=== PATIENT | female | born 1960 | race Caucasian/White ===

== ENCOUNTER 2023-09-03 17:24 | Inpatient (IN) | payer OTHER, MEDICAID ==
[2023-09-03] MEDS ORDERED: Albuterol/Ipratropium 3.0-0.5 MG/3 ML Neb Soln NEB ONE ×2 (17:41→19:45)
[2023-09-03] MEDS ORDERED: methylPREDNISolone Sodium Succinate 125 MG/2 ML SDV IVPUSH ONE (17:41)
[2023-09-03 18:01] LABS: BASOPHILS PERCENT AUTO 0.2 % (0.0-1.0); EOSINOPHILS PERCENT AUTO 3.5 % (1.0-3.0); HEMATOCRIT 39.3 % (37.0-47.0); HEMOGLOBIN 12.8 g/dL (12.0-16.0); LYMPHOCYTES PERCENT AUTO 22.2 % (20.5-50.1); MEAN CORPUSCULAR HEMOGLOBIN 30.5 pg (27.0-34.0); MEAN CORPUSCULAR HGB CONC 32.6 g/dL (33.0-35.0); MEAN CORPUSCULAR VOLUME 93.6 fL (80-100); MONOCYTES PERCENT AUTO 8.1 % (2-8); PLATELET COUNT,PLT 120 10^3/uL (150-450); WHITE BLOOD CELL COUNT,WBC 8.8 10^3/uL (5.0-10.0)
[2023-09-03] MEDS: Sodium Chloride 0.9% 10 ML Syringe FLUSH PRN (18:04)
[2023-09-03 18:09] LABS: ANION GAP 14.3 mEq/L (7-13); CALCIUM 9.3 mg/dL (8.5-10.1); CREATININE 0.84 mg/dL (0.55-1.02); EST CRCL DRUG DOSING (CG) 58.43 mL/min; POTASSIUM,K 4.3 mmol/L (3.5-5.1)
[2023-09-03 20:12] LABS: CORONAVIRUS COVID-19 NAA NEGATIVE (NEGATIVE); INFLUENZA A NAA NEGATIVE (NEGATIVE); INFLUENZA B NAA NEGATIVE (NEGATIVE)
[2023-09-03] MEDS ORDERED: Gabapentin 300 MG Cap PO ONE (22:02)
[2023-09-03] MEDS ORDERED: Acetaminophen 325 MG Tab PO PRN (22:03)
[2023-09-03] MEDS ORDERED: Naloxone 2 MG/2 ML Syringe IVPUSH PRN (22:03)
[2023-09-03] MEDS ORDERED: Ondansetron 4 MG/2 ML SDV IVPUSH PRN (22:03)
[2023-09-03] MEDS ORDERED: Sennosides/Docusate Sodium 50-8.6 MG Tab PO PRN (22:03)
[2023-09-03] MEDS ORDERED: Bisacodyl 5 MG Tab PO PRN (22:03)
[2023-09-03] MEDS ORDERED: HYDROmorphone 0.5 MG/0.5 ML Syringe IVPUSH PRN (22:03)
[2023-09-03] MEDS ORDERED: Acetaminophen/oxyCODONE 325-5 MG Tab PO PRN (22:03)
[2023-09-03] MEDS ORDERED: Magnesium Hydroxide 400 MG/5 ML Susp 30 ML Cup PO PRN (22:03)
[2023-09-03] MEDS ORDERED: Polyethylene Glycol 3350 Powder 17 GM Packet PO PRN (22:03)
[2023-09-03] MEDS ORDERED: LORazepam 2 MG/ML SDV IVPUSH ONE (22:09)
[2023-09-03] MEDS ORDERED: Flumazenil 0.1 MG/ML 5 ML MDV IVPUSH PRN (22:09)
[2023-09-03] MEDS ORDERED: 50% Dextrose in Water 50 ML Syringe IVPUSH PRN (22:12)
[2023-09-03] MEDS ORDERED: Glucagon,Human Recombinant 1 MG Vial IM PRN (22:12)
[2023-09-03] MEDS ORDERED: Albuterol/Ipratropium 3.0-0.5 MG/3 ML Neb Soln NEB PRN (23:00)
[2023-09-04 00:24] LABS: T4 FREE 1.01 ng/dL (0.76-1.46); TSH ULTRASENSITIVE 0.6 uIU/mL (0.36-3.74)
[2023-09-04] MEDS: methylPREDNISolone Sodium Succinate 40 MG/1 ML SDV IVPUSH SCH ×3 (02:00→17:14)
[2023-09-04] MEDS: Pantoprazole 40 MG Tab.CR PO SCH ×2 (06:05→21:15)
[2023-09-04 06:34] LABS: HEMOGLOBIN 12.5 g/dL (12.0-16.0); LYMPHOCYTES PERCENT AUTO 11.3 % (20.5-50.1); MEAN CORPUSCULAR HEMOGLOBIN 30.3 pg (27.0-34.0); MEAN CORPUSCULAR HGB CONC 32.1 g/dL (33.0-35.0); MEAN CORPUSCULAR VOLUME 94.7 fL (80-100); MONOCYTES PERCENT AUTO 0.9 % (2-8); NEUTROPHILS PERCENT AUTO 87.8 % (42.2-75.2); PLATELET COUNT,PLT 278 10^3/uL (150-450); RED BLOOD CELL COUNT 4.12 10^6/uL (4.2-5.4); WHITE BLOOD CELL COUNT,WBC 9.4 10^3/uL (5.0-10.0)
[2023-09-04 07:10] LABS: ALBUMIN 3.1 g/dL (3.4-5.0); BILIRUBIN TOTAL 0.3 mg/dL (0.2-1.0); BUN/CREATININE RATIO 11.3 (No establ ref range); CALCIUM 9.5 mg/dL (8.5-10.1); CREATININE 1.06 mg/dL (0.55-1.02); EST CRCL DRUG DOSING (CG) 50.19 mL/min; MAGNESIUM 1.4 mg/dL (1.8-2.4); PROTEIN TOTAL,TP 7.7 g/dL (6.4-8.2)
[2023-09-04 07:16] LABS: A/G RATIO 0.67
[2023-09-04] MEDS ORDERED: Magnesium Sulfate/Water 2 GM in Premix Bag 1 BAG IV ONE ×3 (07:48→13:45)
[2023-09-04] MEDS ORDERED: Sodium Chloride 0.9% 1,000 ML IV SCH (08:00)
[2023-09-04] MEDS ORDERED: Bumetanide 1 MG Tab PO SCH (09:00)
[2023-09-04] MEDS ORDERED: Lisinopril 10 MG Tab PO SCH (09:00)
[2023-09-04] MEDS ORDERED: Spironolactone 25 MG Tab PO SCH (09:00)
[2023-09-04] MEDS ORDERED: buPROPion 150 MG Tab.ER PO SCH (09:00)
[2023-09-04] MEDS ORDERED: Non-Formulary Medication 1 Each (Estradiol [Estrace] 1 MG Tablet) PO SCH (09:00)
[2023-09-04] MEDS: Saccharomyces Boulardii (Probiotic) 250 MG Cap PO SCH (10:21)
[2023-09-04] MEDS: Potassium Chloride 10 MEQ Tab.ER PO SCH ×3 (10:22→21:15)
[2023-09-04] MEDS: Aspirin 81 MG Tab.EC PO SCH (10:22)
[2023-09-04] MEDS: atorvaSTATin 20 MG Tab PO SCH (10:23)
[2023-09-04] MEDS: Montelukast 10 MG Tab PO SCH (10:23)
[2023-09-04] MEDS: Ferrous Sulfate 325 MG Tab PO SCH (10:24)
[2023-09-04] MEDS: Loratadine 10 MG Tab PO SCH (10:24)
[2023-09-04] MEDS: Calcium Carbonate/Vitamin D3 1250 MG-5 MCG Tab PO SCH ×2 (10:24→21:15)
[2023-09-04] MEDS: Insulin Lispro 100 Units/ML 3 ML Vial SUBCUT SCH ×3 (10:34→17:11)
[2023-09-04] MEDS: metFORMIN 500 MG Tab PO SCH ×2 (12:37→17:14)
[2023-09-05] MEDS: methylPREDNISolone Sodium Succinate 40 MG/1 ML SDV IVPUSH SCH ×4 (01:00→21:31)
[2023-09-05] MEDS: Pantoprazole 40 MG Tab.CR PO SCH ×2 (05:48→21:31)
[2023-09-05 06:40] LABS: HEMATOCRIT 38.8 % (37.0-47.0); HEMOGLOBIN 12.4 g/dL (12.0-16.0); MEAN CORPUSCULAR HEMOGLOBIN 30.5 pg (27.0-34.0); MEAN CORPUSCULAR VOLUME 95.6 fL (80-100); PLATELET COUNT,PLT 298 10^3/uL (150-450); RED BLOOD CELL COUNT 4.06 10^6/uL (4.2-5.4); WHITE BLOOD CELL COUNT,WBC 18.9 10^3/uL (5.0-10.0)
[2023-09-05 06:47] LABS: BASOPHILS PERCENT AUTO 0.1 % (0.0-1.0); LYMPHOCYTES PERCENT AUTO 6.9 % (20.5-50.1); MONOCYTES PERCENT AUTO 3.5 % (2-8); NEUTROPHILS PERCENT AUTO 89.5 % (42.2-75.2)
[2023-09-05 07:01] LABS: ALBUMIN 2.9 g/dL (3.4-5.0); ANION GAP 12.8 mEq/L (7-13); BILIRUBIN TOTAL 0.4 mg/dL (0.2-1.0); BUN/CREATININE RATIO 19.5 (No establ ref range); CALCIUM 8.8 mg/dL (8.5-10.1); CREATININE 0.87 mg/dL (0.55-1.02); EST CRCL DRUG DOSING (CG) 61.15 mL/min; POTASSIUM,K 4.8 mmol/L (3.5-5.1); PROTEIN TOTAL,TP 7.1 g/dL (6.4-8.2)
[2023-09-05 07:02] LABS: A/G RATIO 0.69
[2023-09-05 07:44] LABS: LYMPHOCYTES PERCENT MAN 10 % (20-50); MONOCYTES PERCENT MAN 1 % (2-8); SEG NEUTROPHILS PERCENT MAN 89 % (42-75)
[2023-09-05] MEDS: Insulin Lispro 100 Units/ML 3 ML Vial SUBCUT SCH ×3 (08:35→17:24)
[2023-09-05] MEDS: metFORMIN 500 MG Tab PO SCH ×2 (08:42→17:27)
[2023-09-05] MEDS: Saccharomyces Boulardii (Probiotic) 250 MG Cap PO SCH (08:43)
[2023-09-05] MEDS: Lisinopril 10 MG Tab PO SCH (08:43)
[2023-09-05] MEDS: Bumetanide 1 MG Tab PO SCH (08:43)
[2023-09-05] MEDS: Ferrous Sulfate 325 MG Tab PO SCH (08:43)
[2023-09-05] MEDS: Montelukast 10 MG Tab PO SCH (08:43)
[2023-09-05] MEDS: Calcium Carbonate/Vitamin D3 1250 MG-5 MCG Tab PO SCH ×2 (08:44→21:30)
[2023-09-05] MEDS: Loratadine 10 MG Tab PO SCH (08:44)
[2023-09-05] MEDS: Spironolactone 25 MG Tab PO SCH (08:44)
[2023-09-05] MEDS: Potassium Chloride 10 MEQ Tab.ER PO SCH ×3 (08:45→21:31)
[2023-09-05] MEDS: Aspirin 81 MG Tab.EC PO SCH (08:45)
[2023-09-05] MEDS: atorvaSTATin 20 MG Tab PO SCH (08:45)
[2023-09-05] MEDS ORDERED: Gabapentin 300 MG Cap PO SCH (21:00)
[2023-09-05] MEDS: Sodium Chloride 0.9% 10 ML Syringe FLUSH PRN (21:34)
[2023-09-06] MEDS: methylPREDNISolone Sodium Succinate 40 MG/1 ML SDV IVPUSH SCH ×2 (05:51→09:11)
[2023-09-06] MEDS: Pantoprazole 40 MG Tab.CR PO SCH (05:56)
[2023-09-06 06:27] LABS: HEMATOCRIT 40.3 % (37.0-47.0); HEMOGLOBIN 12.9 g/dL (12.0-16.0); MEAN CORPUSCULAR HEMOGLOBIN 30.4 pg (27.0-34.0); PLATELET COUNT,PLT 301 10^3/uL (150-450); RED BLOOD CELL COUNT 4.24 10^6/uL (4.2-5.4); WHITE BLOOD CELL COUNT,WBC 14.3 10^3/uL (5.0-10.0)
[2023-09-06 06:31] LABS: BASOPHILS PERCENT AUTO 0.1 % (0.0-1.0); LYMPHOCYTES PERCENT AUTO 10.7 % (20.5-50.1); MONOCYTES PERCENT AUTO 3.6 % (2-8); NEUTROPHILS PERCENT AUTO 85.6 % (42.2-75.2)
[2023-09-06 06:57] LABS: BAND PERCENT MAN 1 %; LYMPHOCYTES PERCENT MAN 15 % (20-50); MONOCYTES PERCENT MAN 2 % (2-8); SEG NEUTROPHILS PERCENT MAN 82 % (42-75)
[2023-09-06 07:02] LABS: ALBUMIN 3.1 g/dL (3.4-5.0); ANION GAP 11.7 mEq/L (7-13); BILIRUBIN TOTAL 0.3 mg/dL (0.2-1.0); BUN/CREATININE RATIO 22.9 (No establ ref range); CALCIUM 9.2 mg/dL (8.5-10.1); CREATININE 0.96 mg/dL (0.55-1.02); EST CRCL DRUG DOSING (CG) 55.42 mL/min; MAGNESIUM 1.8 mg/dL (1.8-2.4); POTASSIUM,K 4.7 mmol/L (3.5-5.1); PROTEIN TOTAL,TP 7.4 g/dL (6.4-8.2)
[2023-09-06 07:05] LABS: A/G RATIO 0.72
[2023-09-06] MEDS: metFORMIN 500 MG Tab PO SCH (07:50)
[2023-09-06] MEDS ORDERED: Metolazone 2.5 MG Tab PO SCH (08:30)
[2023-09-06] MEDS: Aspirin 81 MG Tab.EC PO SCH (09:10)
[2023-09-06] MEDS: Montelukast 10 MG Tab PO SCH (09:10)
[2023-09-06] MEDS: Saccharomyces Boulardii (Probiotic) 250 MG Cap PO SCH (09:10)
[2023-09-06] MEDS: Lisinopril 10 MG Tab PO SCH (09:10)
[2023-09-06] MEDS: Potassium Chloride 10 MEQ Tab.ER PO SCH ×2 (09:10→13:54)
[2023-09-06] MEDS: Bumetanide 1 MG Tab PO SCH (09:10)
[2023-09-06] MEDS: Loratadine 10 MG Tab PO SCH (09:10)
[2023-09-06] MEDS: Spironolactone 25 MG Tab PO SCH (09:10)
[2023-09-06] MEDS: Ferrous Sulfate 325 MG Tab PO SCH (09:11)
[2023-09-06] MEDS: Calcium Carbonate/Vitamin D3 1250 MG-5 MCG Tab PO SCH (09:11)
[2023-09-06] MEDS: atorvaSTATin 20 MG Tab PO SCH (09:13)
[2023-09-06] MEDS: Insulin Lispro 100 Units/ML 3 ML Vial SUBCUT SCH ×2 (09:20→13:55)
[2023-09-06] MEDS ORDERED: Pneumococcal 20-Valent Conjug 0.5 ML Syringe IM ONE (14:15)
[2023-09-06] MEDS ORDERED: FLU (Fluarix Quad) QS2023-24(6MOS UP)/PF 60 MCG/0.5 ML Syringe IM ONE (14:15)
== END 2023-09-06 14:35 | disposition home or self-care (01) | DRG 191 ==
LOC: DL.ED 17:24 → UNDOADMOB 19:54 → DL.MS 19:54 → OBSVTOIN 19:54
PROVIDERS: ADMIT Internal Medicine; ATTEND Internal Medicine
DX: J44.1 Chronic obstructive pulmonary disease with (acute) exacerbation (principal); I50.32 Chronic diastolic (congestive) heart failure; Z68.42 Body mass index [BMI] 45.0-49.9, adult; N17.9 Acute kidney failure, unspecified; I11.0 Hypertensive heart disease with heart failure; E78.5 Hyperlipidemia, unspecified; K21.9 Gastro-esophageal reflux disease without esophagitis; E11.40 Type 2 diabetes mellitus with diabetic neuropathy, unspecified; D50.9 Iron deficiency anemia, unspecified; F41.9 Anxiety disorder, unspecified; E66.09 Other obesity due to excess calories; R55 Syncope and collapse; D69.6 Thrombocytopenia, unspecified; F32.A Depression, unspecified; E11.65 Type 2 diabetes mellitus with hyperglycemia; G47.33 Obstructive sleep apnea (adult) (pediatric); Z90.710 Acquired absence of both cervix and uterus; Z11.52 Encounter for screening for COVID-19; Z79.4 Long term (current) use of insulin; Z91.81 History of falling; Z87.891 Personal history of nicotine dependence
CPT/HCPCS: 0240U; 36415; 70450; 70486; 71045; 72125; 73610-RT; 80048; 80053; 82306; 82550; 82947; 83735; 83880; 84439; 84443; 84484; 85025; 90677; 90686; 93005; 93010; 93880; 94010; 94060; 94667; 94668; 94760; 96374; 97161-GP; 97165-GO; 99284; 99285-25; A9270-GY; G0008; G0009; J1815-GY; J2060; J2920; J2930; J3475; J3490; J7030; J7620-GY

== ENCOUNTER 2023-12-11 15:46 | Emergency (ER) | payer MEDICAID, OTHER ==
[2023-12-11 17:04] LABS: BASOPHILS PERCENT AUTO 0.3 % (0.0-1.0); EOSINOPHILS PERCENT AUTO 1.2 % (1.0-3.0); HEMATOCRIT 40.2 % (37.0-47.0); HEMOGLOBIN 12.8 g/dL (12.0-16.0); LYMPHOCYTES PERCENT AUTO 31.1 % (20.5-50.1); MEAN CORPUSCULAR HEMOGLOBIN 29.5 pg (27.0-34.0); MEAN CORPUSCULAR HGB CONC 31.8 g/dL (33.0-35.0); MEAN CORPUSCULAR VOLUME 92.6 fL (80-100); MONOCYTES PERCENT AUTO 9.4 % (2-8); PLATELET COUNT,PLT 265 10^3/uL (150-450); RED BLOOD CELL COUNT 4.34 10^6/uL (4.2-5.4); WHITE BLOOD CELL COUNT,WBC 7.3 10^3/uL (5.0-10.0)
[2023-12-11 17:26] LABS: A/G RATIO 0.8; ALBUMIN 3.4 g/dL (3.4-5.0); ANION GAP 16.6 mEq/L (7-13); BILIRUBIN TOTAL 0.4 mg/dL (0.2-1.0); BUN/CREATININE RATIO 14.9 (No establ ref range); CALCIUM 9.5 mg/dL (8.5-10.1); CREATININE 1.01 mg/dL (0.55-1.02); EST CRCL DRUG DOSING (CG) 52.68 mL/min; POTASSIUM,K 3.6 mmol/L (3.5-5.1); PROTEIN TOTAL,TP 7.7 g/dL (6.4-8.2)
[2023-12-11 17:39] LABS: INFLUENZA A NAA NEGATIVE (NEGATIVE); INFLUENZA B NAA NEGATIVE (NEGATIVE); RESPIRATORY SYNCYTIAL VIR NAA NEGATIVE (NEGATIVE)
[2023-12-11 17:42] LABS: CORONAVIRUS COVID-19 NAA POSITIVE (NEGATIVE)
== END 2023-12-11 18:28 | disposition home or self-care (01) ==
LOC: DL.ED 15:46
DX: U07.1 COVID-19 (principal); I11.0 Hypertensive heart disease with heart failure; I50.9 Heart failure, unspecified; J44.9 Chronic obstructive pulmonary disease, unspecified; E66.9 Obesity, unspecified; Z68.42 Body mass index [BMI] 45.0-49.9, adult; Z79.82 Long term (current) use of aspirin; Z79.899 Other long term (current) drug therapy; Z79.84 Long term (current) use of oral hypoglycemic drugs; Z87.891 Personal history of nicotine dependence
CPT/HCPCS: 0241U; 36415; 71046; 80053; 83880; 85025; 99284; 99285

== ENCOUNTER 2024-06-05 06:06 | Day surgery (SDC) | payer OTHER ==
[2024-06-05] MEDS ORDERED: Midazolam 1 MG/ML 2 ML SDV IV ONE (06:07)
[2024-06-05] MEDS ORDERED: fentaNYL 100 MCG/2 ML SDV IV ONE (06:07)
[2024-06-05] MEDS ORDERED: fentaNYL 100 MCG/2 ML SDV ONE (06:10)
[2024-06-05] MEDS ORDERED: Midazolam 1 MG/ML 2 ML SDV ONE (06:10)
[2024-06-05] MEDS: fentaNYL 100 MCG/2 ML SDV IV ONE ×2 (07:36→07:37)
[2024-06-05] MEDS: Midazolam 1 MG/ML 2 ML SDV IV ONE ×2 (07:37→07:38)
[2024-06-05] MEDS: Dextrose 5%-0.45% NaCl 1,000 ML IV SCH (07:45)
== END 2024-06-05 09:25 | disposition home or self-care (01) ==
LOC: DL.ENDO 06:06
PROVIDERS: ATTEND Internal Medicine Gastroenterology
DX: K29.50 Unspecified chronic gastritis without bleeding (principal); K31.A0 Gastric intestinal metaplasia, unspecified; K21.9 Gastro-esophageal reflux disease without esophagitis; J44.9 Chronic obstructive pulmonary disease, unspecified; F32.A Depression, unspecified; E11.9 Type 2 diabetes mellitus without complications; E66.01 Morbid (severe) obesity due to excess calories; Z68.41 Body mass index [BMI] 40.0-44.9, adult
CPT/HCPCS: 43239; 87077; J2250; J3010; J7799